=== PATIENT | male | born 1990 | race Caucasian/White ===

== ENCOUNTER → 2016-07-20 00:36 | Emergency (ER) | payer BC ==
[~2016-07-20 00:36] MED LIST: Tetan/Diph/Pertus SYR(Tdap)* 0.5 ML SYR(BOOSTRIX) use SYR IM ONE
[2016-07-20 00:56] VITALS: BP 138/81
--- NOTE | 2016-07-21 20:50 | ED ---
Upper Extremity Pain - HPI Summary HPI Summary: Pt in with c/o laceration to 4th digit left hand. pt states cutting finger on beer can. He denies numbness, tingling, color or temperature changes. He denies other injuries or complaints. Wound is superficial and without FB or signs of infection. - History of Current Complaint Chief Complaint: EDLacSutureRecheck Stated Complaint: LT RING FINGER LAC Time Seen by Provider: 07/20/16 02:27 Hx Obtained From: Patient Mechanism Of Injury: Unknown - beer Onset/Duration: Started Minutes Ago Timing: Constant Severity Initially: Mild Severity Currently: Mild Pain Location: Hand Aggravating Factor(s): Nothing Alleviating Factor(s): Nothing Associated Signs & Symptoms: Positive: Negative - Risk Factors Non-Orthopedic Risk Factor: Negative DVT Risk Factors: Negative Septic Arthritis Risk Factor: Negative - Allergies/Home Medications Allergies/Adverse Reactions: Allergies Allergy/AdvReac Type Severity Reaction Status Date / Time No Known Allergies Allergy Verified 07/20/16 01:45 PMH/Surg Hx/FS Hx/Imm Hx Previously Healthy: Yes - Immunization History Hx Pertussis Vaccination: No Immunizations Up to Date: Yes Infectious Disease History: No Infectious Disease History: Denies: Traveled Outside the [place] in Last 30 Days - Social History Occupation: Employed Full-time Lives: With Family Alcohol Use: Weekly Hx Substance Use: No Substance Use Type: Reports: None Hx Tobacco Use: No Smoking Status (MU): Never Smoked Tobacco Review of Systems Constitutional: Negative Eyes: Negative Cardiovascular: Negative Respiratory: Negative Genitourinary: Negative Positive: see HPI Musculoskeletal: Negative Positive: Other - .5cm laceration to 4th digit of left hand Neurological: Negative Psychological: Normal All Other Systems Reviewed And Are Negative: Yes Physical Exam Triage Information Reviewed: Yes Vital Signs On Initial Exam: Initial Vitals Temp Pulse Resp BP Pulse Ox 97.4 F 91 16 138/81 99 07/20/16 00:54 07/20/16 00:54 07/20/16 00:54 07/20/16 00:54 07/20/16 00:54 Vital Signs Reviewed: Yes Appearance: Positive: Well-Appearing, Well-Nourished Skin: Positive: Warm, Skin Color Reflects Adequate Perfusion, Other - .5cm laceration to 4th digit of left hand Eyes: Positive: EOMI, ARNOLDO, Conjunctiva Clear Neck: Positive: Supple, No Lymphadenopathy Respiratory/Lung Sounds: Positive: Clear to Auscultation, Breath Sounds Present Cardiovascular: Positive: Normal, RRR Musculoskeletal: Positive: Strength/ROM Intact Neurological: Positive: Normal, Sensory/Motor Intact, Speech Normal Psychiatric: Positive: Normal Diagnostics - Vital Signs Vital Signs Temp Pulse Resp BP Pulse Ox 07/20/16 01:35 97.4 F 91 16 138/81 99 07/20/16 00:54 97.4 F 91 16 138/81 99 - Laboratory Lab Statement: Any lab studies that have been ordered have been reviewed, and results considered in the medical decision making process. Course/Dx - Course Course Of Treatment: Irrigated wound with 30CC NS. 1% lidocaine without epi used for local anesthesia. 4 sutures placed in wound. Patient tolerated well. Follow up in 7 days for suture removal. - Diagnoses Differential Diagnosis/HQI/PQRI: Positive: Contusion, Laceration Provider Diagnoses: Laceration Discharge - Discharge Plan Condition: Stable Disposition: HOME Patient Education Materials: Care For Your Stitches (ED), Laceration (ED) [facility] - Additional Instructions: Follow up with [facility] or your PCP Sutures should be removed in 7 days. If you notice any worsening symptoms such as drainage, red streaking, warmth or redness, come back to ED right away. Keep it wrapped for 24 hours, then leave open to air. You may get it wet with soap and water after 24 hours, but do not scrub it.
== END | disposition home or self-care (01) ==
LOC: ED 00:36
DX: S61.412A Laceration without foreign body of left hand, initial encounter (principal); W45.8XXA Other foreign body or object entering through skin, initial encounter; Y93.9 Activity, unspecified; Y92.9 Unspecified place or not applicable
CPT/HCPCS: 90471; 90715; 99282